=== PATIENT | male | born 1960 | race Hispanic/Latino ===

== ENCOUNTER 2018-06-19 16:12 | Emergency (ER) | payer OTHER ==
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
[2018-06-19] MEDS ORDERED: CYCLOBENZAPRINE 10 MG TAB ONE (17:57)
[2018-06-19] MEDS ORDERED: HYDROCODONE/APAP 10/325 TAB ONE (17:57)
[2018-06-19] MEDS ORDERED: KETOROLAC 30 MG/ML INJ ONE (17:57)
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
== END 2018-06-19 18:50 | disposition home or self-care (01) ==
LOC: ER 16:12
DX: S16.1XXA Strain of muscle, fascia and tendon at neck level, initial encounter (principal); R51 Headache; M54.5 Low back pain; V49.50XA Passenger injured in collision with unspecified motor vehicles in traffic accident, initial encounter; Y92.411 Interstate highway as the place of occurrence of the external cause
CPT/HCPCS: 70450; 72100; 72125; 96372; 99284